=== PATIENT | female | born 2000 | race African-American/Black ===

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

== ENCOUNTER 2021-02-16 21:42 | Emergency (ER) | payer MEDICAID ==
[~2021-02-16] VITALS: Ht 167.6 cm; Wt 72.0 kg
[2021-02-16 21:45] VITALS: BP 163/74
[2021-02-16 22:17] LABS: CLARITY URINE CLOUDY (CLEAR); COLOR URINE YELLOW (YELLOW); KETONES URINE TRACE (NEGATIVE); LEUKOCYTE ESTERASE URINE TRACE (NEGATIVE); NITRITE URINE NEGATIVE (NEGATIVE); OCCULT BLOOD URINE NEGATIVE (NEGATIVE); PROTEIN URINE NEGATIVE (NEGATIVE); SPECIFIC GRAVITY URINE 1.022 (1.005-1.030); UROBILINOGEN URINE 0.2 E.U./dL (0.2-1.0)
[2021-02-16] MEDS ORDERED: NITR-87 MT (22:59)
[2021-02-16] MEDS ORDERED: NITROFURANTOIN 100MG M/M CAPSULE PO ONE (23:45)
== END 2021-02-17 00:12 | disposition home or self-care (01) ==
LOC: ER 21:42
DX: N30.00 Acute cystitis without hematuria (principal); Z87.42 Personal history of other diseases of the female genital tract
CPT/HCPCS: 81003; 81025; 87210; 99283